=== PATIENT | female | born 1990 | race American Indian/Alaskan Native ===

== ENCOUNTER 2019-02-15 21:02 | Inpatient (IN) | payer OTHER ==
[2019-02-15] MEDS ORDERED: MINERAL OIL 30 ML ORAL LIQD PO PRN (21:11)
[2019-02-15] MEDS ORDERED: TERBUTALINE 1 MG/1 ML INJ SUB-Q PRN (21:11)
[2019-02-15] MEDS ORDERED: ePHEDrine SULFATE 50 MG/1 ML INJ IV PRN (21:11)
[2019-02-15] MEDS ORDERED: TERBUTALINE 1 MG/1 ML INJ IVP PRN (21:11)
[2019-02-15] MEDS ORDERED: LIDOCAINE (2%) 20 MG/1 ML VIAL 20 ML MDV INFILTRATI ONE (21:11)
[2019-02-15] MEDS ORDERED: ONDANSETRON 4 MG/2 ML INJ IV PRN (21:15)
[2019-02-15] MEDS ORDERED: WITCH HAZEL/ GLYCERIN PAD TP PRN (21:15)
[2019-02-15] MEDS ORDERED: MAGNESIUM HYDROXIDE (MOM) ORAL LIQD UDC PO PRN (21:15)
[2019-02-15] MEDS ORDERED: diphenhydrAMINE 25 MG CAP PO PRN (21:15)
[2019-02-15] MEDS ORDERED: PROMETHAZINE 25 MG TAB PO PRN (21:15)
[2019-02-15] MEDS ORDERED: HYDROcodone/ACETAMINOPHEN 5-325 MG TAB PO PRN (21:15)
[2019-02-15] MEDS ORDERED: LANOLIN/ZINC/DIMETHICONE (LANSINOH) 7 GM TP PRN (21:15)
[2019-02-15] MEDS ORDERED: PROMETHAZINE 25 MG RECT SUPP PR PRN (21:15)
[2019-02-15] MEDS ORDERED: ACETAMINOPHEN 325 MG TAB PO PRN (21:15)
--- NOTE | 2019-02-15 21:22 | History and Physical Report ---
History of Present Illness Date of examination: 02/15/19 Date of admission: 02/15/19 21:07 Chief complaint: Labor History of present illness: Pt is a 29yo BF EDC 02/18/19; EGA 39 4/7 weeks presented to [facility] ER in labor and subsequently delivered in the ER. She received late care at [facility] since 30 weeks and course was unremarkable except for + Trichomonas. records are available and GBS is Positive. Past History Past Medical History: no pertinent history Past Surgical History: no surgical history Family/Genetic History: heart disease, hypertension Social history: no significant social history, - Obstetrical History Expected Date of Delivery: 02/18/19 Actual Gestation: 39 Week(s) 5 Day(s) Medications and Allergies Allergies Allergy/AdvReac Type Severity Reaction Status Date / Time No Known Allergies Allergy Unverified 02/15/19 21:27 Active Meds: Active Medications Ephedrine Sulfate (Ephedrine Sulfate) 10 mg IV Q2M PRN PRN Reason: Hypotension Oxytocin/Sodium Chloride (Pitocin/Ns 20 Unit/1000ml Drip) 20 units in 1,000 mls @ 125 mls/hr IV DIRECT GIANNI Oxytocin/Sodium Chloride (Pitocin/Ns 30 Unit/500ml) 30 units in 500 mls @ 1 m ls/hr IV TITR GIANNI; Protocol Lactated Ringer's (Lactated Ringers) 1,000 mls @ 125 mls/hr IV DIRECT GIANNI Lidocaine (Xylocaine 2%) 20 ml INFILTRATI ONCE ONE Stop: 02/15/19 21:12 Mineral Oil (Mineral Oil) 30 ml PO QHS PRN PRN Reason: Constipation Terbutaline Sulfate (Brethine) 0.25 mg SUB-Q ONCE PRN PRN Reason: Hyperstimulation/Hypertonicity Terbutaline Sulfate (Brethine) 0.25 mg IVP ONCE PRN PRN Reason: Hyperstimulation/Hypertonicity Review of Systems All systems: negative - Vital Signs Vital signs: Vital Signs Pulse BP 96 H 124/72 02/15/19 21:14 02/15/19 21:14 Temp Pulse Resp BP Pulse Ox 96 H 124/72 02/15/19 21:14 02/15/19 21:14 - Physical Exam Breasts: Positive: deferred Cardiovascular: Regular rate Lungs: Positive: Clear to auscultation Abdomen: Positive: normal appearance Genitourinary (Female): Positive: normal external genitalia Vagina: Positive: normal moisture Uterus: Positive: enlarged Extremities: Positive: normal - Obstetrical FHR: category 1 Uterine Contraction Monitor Mode: External Cervical Dilatation: 10 Cervical Effacement Percentage: 100 station: +3 Uterine Contraction Pattern: Regular Uterine Tone Measurement Phase: Contraction Uterine Contraction Intensity: Strong/Firm Results Result Diagrams: 02/16/19 00:11 All other labs normal. Assessment and Plan - Patient Problems (1) 39 weeks gestation of Onset Date: 02/15/19 Current Visit: Yes Status: Acute Plan to address problem: A: IUP @ 39 4/7 weeks in labor +GBS P: Admit to L&D for expectant vaginal delivery IV Ampicillin
--- NOTE | 2019-02-15 21:27 | Procedure Note ---
OB Delivery Note - Delivery Date of Delivery: 02/15/19 Surgeon: VALENTE KOCH Estimated blood loss: 200cc - Vaginal Delivery presentation: vertex Delivery position: OA Intrapartum events: precipitous labor- <3hr Delivery induction: none Delivery augmentation: rupture of membranes Delivery monitor: external FHT, external uterine Route of delivery: Delivery placenta: spontaneous Delivery cord: 3 umbilical vessels Episiotomy: none Delivery laceration: none Anesthesia: none Delivery comments: delivered OA and placed on Mom's chest for [id number] bonding after cord clamped and cut. - A at 1 minute: 8 at 5 minutes: 9 Infant Gender: Male (3114gms)
[2019-02-15] MEDS ORDERED: OXYTOCIN DRIP 30 UNITS/500 ML BAG IV SCH (22:00)
[2019-02-15] MEDS ORDERED: OXYTOCIN 20 UNIT/1000ML DRIP 20 UNITS/1,000 ML BAG IV SCH ×2 (22:00)
[2019-02-15] MEDS ORDERED: LACTATED RINGERS 1,000 ML IV SCH (22:00)
[2019-02-15] MEDS: FERROUS SULFATE 325 MG TAB PO SCH (23:49)
[2019-02-15] MEDS: IBUPROFEN 600 MG TAB PO SCH (23:49)
[2019-02-15] MEDS: DOCUSATE SODIUM 100 MG CAP PO SCH (23:49)
[2019-02-16 00:52] LABS: Hematocrit 36.3 % (30.3-42.9); Hemoglobin 11.6 gm/dl (10.1-14.3); Mean Corpuscular HGB Conc 32 % (30-34); Mean Corpuscular Volume 81 fl (79-97); Platelet Count 264 K/mm3 (140-440); Red Blood Count 4.49 M/mm3 (3.65-5.03); Red Cell Distribution Width 15.9 % (13.2-15.2)
[2019-02-16] MEDS ORDERED: TETANUS,DIPH,PERTUSS(ACELL) VACCINE 0.5 ML SYRINGE IM ONE (06:00)
[2019-02-16] MEDS ORDERED: MEASLES, MUMPS & RUBELLA 12,500 UNIT/0.5 ML VACCINE SUB-Q ONE (06:00)
[2019-02-16] MEDS: IBUPROFEN 600 MG TAB PO SCH ×3 (06:33→17:01)
[2019-02-16 09:56] LABS: Hematocrit 35.8 % (30.3-42.9); Hemoglobin 11.6 gm/dl (10.1-14.3)
[2019-02-16] MEDS: DOCUSATE SODIUM 100 MG CAP PO SCH ×2 (11:47→22:01)
[2019-02-16] MEDS: PRENATAL VIT27-FE FUMARATE-FOLIC ACID VIT TAB PO SCH (11:47)
[2019-02-16] MEDS: FERROUS SULFATE 325 MG TAB PO SCH ×2 (11:47→22:01)
--- NOTE | 2019-02-16 12:18 | Progress Note ---
Assessment and Plan - Patient Problems (1) 39 weeks gestation of Onset Date: 02/15/19 Current Visit: Yes Status: Resolved (2) (normal spontaneous vaginal delivery) Onset Date: 02/16/19 Current Visit: Yes Status: Resolved Plan to address problem: A: S/P - PPD #1 Doing well Asymptomatic anemia - stable P: May go home tomorrow. Subjective - Subjective Date of service: 02/16/19 Principal diagnosis: s/p - PPD #1 Interval history: Pt is feeling well without complaints. Bleeding improved. Patient reports: appetite normal, voiding normally, pain well controlled, flatus, ambulating normally, no dizzy ambulation, no nauseated [place]: doing well, nursing well Objective - Vital Signs Latest vital signs: Vital Signs Temp Pulse Resp BP BP Pulse Ox 02/16/19 08:05 97.9 F 84 20 119/65 02/16/19 06:33 18 02/16/19 04:35 98.9 F 82 18 118/69 98 02/16/19 00:49 18 02/15/19 23:49 18 02/15/19 23:00 98.2 F 85 18 126/77 100 02/15/19 22:29 100 H 127/70 02/15/19 22:14 100 H 133/72 02/15/19 21:59 97 H 133/73 02/15/19 21:45 98.0 F 90 16 126/66 98 02/15/19 21:44 92 H 16 126/66 115/78 02/15/19 21:29 92 H 115/78 02/15/19 21:15 96 H 16 124/72 02/15/19 21:14 96 H 124/72 02/15/19 21:02 98.3 F 99 H 18 132/72 98 Intake and Output 02/15/19 02/16/19 02/16/19 22:59 06:59 14:59 Intake Total 240 240 120 Output Total 300 700 Balance -60 -460 120 Intake: Oral 240 240 120 Output: Urine 300 700 Void 300 700 Other: Total, Intake Amount 240 240 120 Total, Output Amount 300 400 # Voids Void 1 1 Weight 97.069 kg Estimated Blood Loss 200 - Exam Breasts: Present: deferred Abdomen: Present: normal appearance, soft Uterus: Present: normal, firm, fundal height below umbilicus Extremities: Present: normal - Labs Labs: Abnormal lab results 02/16/19 Range/Units 00:11 WBC 12.3 H (4.5-11.0) K/mm3 MCH 26 L (28-32) pg RDW 15.9 H (13.2-15.2) % Laboratory Tests 02/16/19 02/16/19 02/16/19 00:11 00:11 09:22 WBC 12.3 H RBC 4.49 Hgb 11.6 11.6 Hct 36.3 35.8 MCV 81 MCH 26 L MCHC 32 RDW 15.9 H Plt Count 264 Blood Type A POSITIVE Antibody Screen Negative
--- NOTE | 2019-02-16 14:14 | Discharge Summary ---
Providers - Providers Date of Admission: 02/15/19 21:07 Date of discharge: 02/17/19 Attending physician: VALENTE KOCH Primary care physician: VALENTE KOCH Hospitalization Reason for admission: active labor, rupture of membranes, IUP at term Delivery: Episiotomy: none Laceration: none Incision: normal Other procedures: none complications: none Discharge diagnosis: IUP at term delivered baby: male Hospital course: Unremarkable. Condition at discharge: Good Disposition: DC-01 TO HOME OR SELFCARE - Discharge Diagnoses (1) 39 weeks gestation of Status: Resolved (2) (normal spontaneous vaginal delivery) Status: Resolved Plan - Discharge Medications Prescriptions: Ferrous Sulfate [Feosol 325 MG tab] 325 mg PO BID #60 tablet Ibuprofen [Motrin 600 MG tab] 600 mg PO Q6HR #30 tablet Vit-Fe Fumar-FA [ Vitamin] 1 each PO QDAY #30 tablet - Provider Discharge Summary Activity: routine, no sex for 6 weeks, no heavy lifting 4 weeks, no strenuous exercise Diet: routine Instructions: routine Additional instructions: [] Smoking cessation referral if applicable(refer to patient education folder for contact #) [] Refer to [facility] Booklet Call your doctor immediately for: * Fever > 100.5 * Heavy vaginal bleeding ( >1 pad per hour) * Severe persistent headache * Shortness of breath * Reddened, hot, painful area to leg or breast * Drainage or odor from incision. * Keep incision clean and dry at all times and follow doctor's instructions regarding bathing/showering - Follow up plan Follow up: VALENTE KOCH MD [Primary Care Provider] - 6 Weeks
[2019-02-17] MEDS: IBUPROFEN 600 MG TAB PO SCH ×3 (01:47→18:11)
[2019-02-17] MEDS ORDERED: TETANUS,DIPH,PERTUSS(ACELL) VACCINE 0.5 ML SYRINGE IM ONE (06:00)
[2019-02-17] MEDS: FERROUS SULFATE 325 MG TAB PO SCH (10:17)
[2019-02-17] MEDS: PRENATAL VIT27-FE FUMARATE-FOLIC ACID VIT TAB PO SCH (10:17)
[2019-02-17] MEDS: DOCUSATE SODIUM 100 MG CAP PO SCH (10:18)
[2019-02-18 01:17] VITALS: BP 120/64
== END 2019-02-17 21:30 | disposition home or self-care (01) | DRG 775 ==
LOC: TRG 21:02 → LD 21:07 → OB 22:41
PROVIDERS: ADMIT Obstetrics & Gynecology; ATTEND Obstetrics & Gynecology
PROC: 10E0XZZ Delivery of Products of Conception, External Approach (ICD-10-PCS; principal; 2019-02-15)
PROC: 3E0234Z Introduction of Serum, Toxoid and Vaccine into Muscle, Percutaneous Approach (ICD-10-PCS; 2019-02-17)
DX: O99.824 Streptococcus B carrier state complicating childbirth (principal); O62.3 Precipitate labor; O90.81 Anemia of the puerperium; D64.9 Anemia, unspecified; Z3A.39 39 weeks gestation of pregnancy; Z37.0 Single live birth; Z23 Encounter for immunization
CPT/HCPCS: 36415; 85014; 85018; 85027; 86850; 86900; 86901; 90471; 90715; G0378; A6250; J2590